=== PATIENT | male | born 1985 | race Caucasian/White ===

== ENCOUNTER 2022-04-05 21:08 | Emergency (ER) | payer BC ==
[2022-04-05] MEDS ORDERED: Bacitracin Oint 1 GM U/D Packet TOP ONE (21:10)
[2022-04-05] MEDS ORDERED: Lidocaine 1% 5 ML VIAL INJECT ONE (21:10)
[2022-04-05] MEDS ORDERED: Diphtheria,Pertussis(Acell),Tetanus Vaccine 0.5 ML Syringe IM ONE (21:18)
== END 2022-04-05 22:08 | disposition home or self-care (01) ==
LOC: JP.ED 21:08
DX: S61.411A Laceration without foreign body of right hand, initial encounter (principal); Z72.0 Tobacco use; Z23 Encounter for immunization; W26.8XXA Contact with other sharp object(s), not elsewhere classified, initial encounter
CPT/HCPCS: 12002; 90471; 90715; 99281; 99282-25